=== PATIENT | male | born 1980 | race Caucasian/White ===

== ENCOUNTER 2016-07-25 22:45 | Emergency (ER) | payer SELFPAY ==
[~2016-07-25] VITALS: Ht 175.3 cm; Wt 76.3 kg
[~2016-07-25 22:45] MED LIST: ACID CONTROL150 MG PO; FLOMAX0.4 MG PO; KEFLEX500 MG PO; MOTRIN800 MG PO; NAPROSYN500 MG PO; NOHOMEMEDS; NORCO 10/3251 TABLET PO; PERCOCET 5/31 TABLET PO; PREDNISONE20 MG PO; TRAMADOL HCL50 MG PO; VALIUM5 MG PO; ZOFRAN ODT4 MG PO; ZOFRAN4 MG PO
[2016-07-25] MEDS ORDERED: KEFLEX500 MG PO (23:35)
[2016-07-25 23:41] VITALS: BP 109/64
== END 2016-07-25 23:45 | disposition home or self-care (01) ==
LOC: EME 22:45
PROC: 0JQJ0ZZ Repair Right Hand Subcutaneous Tissue and Fascia, Open Approach (ICD-10-PCS; principal; 2016-07-25)
DX: S61.214A Laceration without foreign body of right ring finger without damage to nail, initial encounter (principal); W23.0XXA Caught, crushed, jammed, or pinched between moving objects, initial encounter
CPT/HCPCS: 99281; 99284; S0020